=== PATIENT | female | born 2000 | race Asian ===

== ENCOUNTER 2020-01-30 13:22 | Emergency (ER) | payer OTHER ==
[~2020-01-30] VITALS: Ht 160 cm; Wt 88.5 kg
[2020-01-30 13:22] VITALS: TEMP 98
[2020-01-30 14:00] LABS: PLATELET COUNT 231 K/uL (152-353)
[2020-01-30 14:04] LABS: POTASSIUM 3.5 mmol/L (3.6-5.2)
[2020-01-30 16:50] VITALS: BP 131/78
== END 2020-01-30 16:50 | disposition home or self-care (01) ==
LOC: ED 13:30
PROVIDERS: Family Medicine
DX: S16.1XXA Strain of muscle, fascia and tendon at neck level, initial encounter (principal); M62.830 Muscle spasm of back; Z3A.29 29 weeks gestation of pregnancy; V49.40XA Driver injured in collision with unspecified motor vehicles in traffic accident, initial encounter; Y92.89 Other specified places as the place of occurrence of the external cause
CPT/HCPCS: 80053; 81000; 85027; 99283; 99284; J1885

== ENCOUNTER 2020-09-21 21:07 | Emergency (ER) | payer OTHER ==
[~2020-09-21] VITALS: Ht 160 cm; Wt 93.0 kg
[2020-09-21 21:08] VITALS: BP 134/92; TEMP 98.4
[2020-09-21 21:43] LABS: PLATELET COUNT 290 K/uL (152-353)
[2020-09-21 21:46] LABS: POTASSIUM 3.4 mmol/L (3.6-5.2); SODIUM 141 mmol/L (136-145)
== END 2020-09-21 22:25 | disposition home or self-care (01) ==
LOC: ED 21:07
PROVIDERS: Emergency Medicine
DX: R10.84 Generalized abdominal pain (principal)
CPT/HCPCS: 80053; 80307; 80320; 81000; 81025; 82150; 83690; 84484; 85008; 85027; 85379; 93005; 96374; 99284; J2405